=== PATIENT | female | born 1955 | race Caucasian/White ===

== ENCOUNTER 2019-02-25 07:00 | Inpatient (IN) | payer MEDICARE, MEDICAID ==
[2019-02-21 12:13] VITALS: BMI 25.6
[2019-02-25] MEDS ORDERED: Sodium Chloride 0.9% 10 ML ONE (07:36)
[2019-02-25 08:10] LABS: #Basophils 0.1 thou/uL (0.0-0.2); #Eosinphils 0.3 thou/uL (0.0-0.7); #Monocytes 0.8 thou/uL (0.11-0.59); #Neutrophils 2.8 thou/uL (1.40-6.50); %Eosinophils 4.2 % (0.0-10.0); %Lymphocytes 43.5 % (21.0-51.0); %Neutrophils 40.3 % (42.0-75.0); Hemoglobin 14.5 g/dL (12.0-16.0); Mean Corpuscular HGB CONC 32.7 g/dL (32.0-36.0); Mean Corpuscular Hemoglobin 32.7 pg (27.0-31.0); Mean Platelet Volume 9.9 fL (7.4-10.4); Platelet Count 332 thou/uL (130-400); Red Blood Cell (RBC) Count 4.42 mill/uL (4.20-5.40); White Blood Cell (WBC) Count 6.8 thou/uL (4.8-10.8)
[2019-02-25 08:27] LABS: Anion Gap 7 mmol/L (10-20); BUN (Urea Nitrogen) 9 mg/dL (9.8-20.1); Calc. Creatinine Clearance 93 mL/min (70-130); Calcium 9.4 mg/dL (7.8-10.44); Carbon Dioxide 28 mmol/L (23-31); Chloride 108 mmol/L (98-107); Estimated GFR-MDRD Greater than 90; Glucose 105 mg/dL (80-115); Potassium 3.6 mmol/L (3.5-5.1); Sodium 139 mmol/L (136-145)
[2019-02-25] MEDS ORDERED: Fentanyl 100 MCG/2 ML VIAL ONE ×3 (09:19→11:07)
[2019-02-25] MEDS ORDERED: Promethazine HCl 25 MG/ML VIAL SLOW IVP PRN (10:40)
[2019-02-25] MEDS ORDERED: Promethazine HCl 25 MG/ML VIAL IM PRN ×2 (10:40→11:03)
[2019-02-25] MEDS ORDERED: Mag-Al 1200 mg/1200 mg/30 ML UDCUP PO PRN (11:03)
[2019-02-25] MEDS ORDERED: Ondansetron PF 4 MG/2 ML Vial IM PRN (11:03)
[2019-02-25] MEDS ORDERED: HYDROcodone/Acetaminophen 10/325 mg Tablet PO PRN (11:03)
[2019-02-25] MEDS ORDERED: Milk Of Magnesia 30 ML UDCUP PO PRN (11:03)
[2019-02-25] MEDS ORDERED: Promethazine HCl 12.5 MG SUPP PR PRN (11:03)
[2019-02-25] MEDS ORDERED: Promethazine 25 MG TAB PO PRN (11:03)
[2019-02-25] MEDS ORDERED: tiZANidine HCl 4 MG TAB PO PRN (11:03)
[2019-02-25] MEDS ORDERED: diphenhydrAMINE 50 MG/ML VIAL IVP PRN (11:09)
[2019-02-25] MEDS ORDERED: diphenhydrAMINE 25 MG CAP PO PRN (11:09)
[2019-02-25] MEDS ORDERED: Morphine 2 MG/ML SYRINGE SLOW IVP PRN (11:10)
[2019-02-25] MEDS ORDERED: PHENYLEPHRINE-NS 100 MCG/ML 10 ML SYRINGE ONE (11:16)
[2019-02-25] MEDS ORDERED: PROPOFOL 200 MG/20 ML VIAL ONE (11:16)
[2019-02-25] MEDS ORDERED: Rocuronium Bromide 10 MG/ML (10ML VIAL) ONE (11:16)
[2019-02-25] MEDS ORDERED: Lidocaine 1% PF 5 ML VIAL ONE (11:16)
[2019-02-25] MEDS ORDERED: ePHEDrine 50 MG/ML VIAL ONE (11:16)
[2019-02-25] MEDS ORDERED: Glycopyrrolate 0.2 MG/ML 5 ML SYRINGE ONE (11:16)
[2019-02-25] MEDS ORDERED: HYDROmorphone 2 MG/ML VIAL ONE (11:19)
[2019-02-25] MEDS ORDERED: HYDROmorphone 2 MG/ML VIAL SLOW IVP PRN (11:35)
[2019-02-25] MEDS ORDERED: Promethazine HCl 25 MG/ML VIAL ONE (11:45)
[2019-02-25] MEDS: Sodium Chloride 0.9% 1,000 ML IV SCH ×2 (12:40→23:52)
[2019-02-25] MEDS: HYDROcodone/Acetaminophen 10/325 mg Tablet PO PRN ×3 (14:21→23:51)
[2019-02-25] MEDS: Morphine 4 MG/ML VIAL SLOW IVP PRN ×4 (14:58→20:16)
[2019-02-25] MEDS: CEFAZOLIN 2 GM in Premix Bag 1 BAG IVPB SCH (16:26)
--- NOTE | 2019-02-25 17:00 | OP ---
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 PROCEDURES PERFORMED: L4-L5 laminectomy, posterolateral arthrodesis L4-5, demineralized bone matrix, local morselized autograft, pedicle screw instrumentation L4-5. DESCRIPTION OF PROCEDURE: The patient was brought to the operating room and intubated. She was rolled in a prone position on gel-filled chest rolls. An incision was made exposing L4-L5 and the level was confirmed by x-ray. We performed complete L5 and inferior L4 laminectomies completely decompressing the neural elements. Next, pedicle screws were placed at right L4 and right L5 using lateral fluoroscopic guidance and the position was confirmed by x-ray. The rakesh was secured between the screws, connected by nuts, which were final tightened. Posterolateral surfaces were then prepared for the purpose of arthrodesis and a combination of demineralized bone matrix, local morselized autograft was laid over the lamina and posterolateral surfaces for arthrodesis. The wound was extensively irrigated. Vancomycin powder was applied, and hemostasis was secured. The wound was closed in anatomic layers. Job ID: [id number]
[2019-02-25] MEDS ORDERED: Dexamethasone 4 mg/ml Vial SLOW IVP SCH (21:45)
[2019-02-26] MEDS: CEFAZOLIN 2 GM in Premix Bag 1 BAG IVPB SCH
[2019-02-26] MEDS: Morphine 4 MG/ML VIAL SLOW IVP PRN ×2 (01:23→10:41)
[2019-02-26] MEDS: HYDROcodone/Acetaminophen 10/325 mg Tablet PO PRN ×5 (03:57→23:05)
--- NOTE | 2019-02-26 06:42 | PRG ---
DATE OF SERVICE: 02/26/2019 SUBJECTIVE: The patient is a 63-year-old female, status post L4-L5 decompression and fusion, postoperative day #1. Following the surgery, she was transitioned to the Med/Surg floor. She did have some issues with pain control overnight, complaining mostly of radicular right leg pain into the right groin and right anterior proximal leg. The on-call PA was notified overnight and the patient was treated with 8 mg of IV Decadron. She reports this has significantly improved her symptoms. She is still complaining of some soreness in the back as well. She reports she has gotten up several times with her walker and been able to walk to the bathroom without any difficulty. She is voiding appropriately. The patient is awake, alert, and in no acute distress this morning. She has some breakaway weakness in the lower extremities, but this appears to be mostly related to pain. She has no reflex asymmetry. Incision is dry and intact. PLAN: We will continue to work on pain control mobilization today. Anticipate the patient could be discharged home in 1 to 2 days. Job ID: [id number]
[2019-02-26] MEDS ORDERED: Loperamide HCl 2 MG CAP PO PRN (12:40)
[2019-02-26] MEDS ORDERED: Fluticasone Propionate Nasal Spray 16 gm Bottle NASAL PRN (12:40)
[2019-02-26] MEDS ORDERED: Ergocalciferol 1.25 MG(50,000 UNITS) CAP PO SCH (12:45)
[2019-02-26] MEDS: Pregabalin 50 MG CAP PO SCH ×2 (15:00→20:21)
[2019-02-26] MEDS: Sodium Chloride 0.9% 1,000 ML IV SCH (15:02)
[2019-02-26] MEDS ORDERED: Bupropion 150 MG XL TAB PO SCH (21:00)
--- NOTE | 2019-02-26 22:51 | EKG ---
Test Reason : PREOP Blood Pressure : / mmHG Vent. Rate : 057 BPM Atrial Rate : 057 BPM P-R Int : 136 ms QRS Dur : 096 ms QT Int : 458 ms P-R-T Axes : 059 062 056 degrees QTc Int : 445 ms Sinus bradycardia Otherwise normal ECG No previous ECGs available Confirmed by KAYKAY KUMAR ([id number]) on 02/26/2019 10:51:12 PM Referred By: ISH Confirmed By:KAYKAY KUMAR
[2019-02-27] MEDS: Morphine 4 MG/ML VIAL SLOW IVP PRN (01:17)
[2019-02-27] MEDS: Sodium Chloride 0.9% 1,000 ML IV SCH (03:16)
[2019-02-27] MEDS: HYDROcodone/Acetaminophen 10/325 mg Tablet PO PRN ×3 (05:18→13:19)
[2019-02-27] MEDS: Pregabalin 50 MG CAP PO SCH (09:30)
--- NOTE | 2019-02-27 10:58 | DIS ---
DATE OF ADMISSION: 02/25/2019 DATE OF DISCHARGE: 02/27/2019 HOSPITAL COURSE: The patient is a 63-year-old female, status post L4-L5 decompression and fusion. Following the surgery, she was transitioned to the Med/Surg floor. She initially had some increased pain issues, but this improved following administration of IV Decadron as well as with time. She mobilized during her admission and worked with Physical Therapy. She is ambulating easily in her room and in department with her walker. She has been tolerating a regular diet and voiding appropriately. She does have some mild incisional drainage, but this seems to be tapering with time. She is awake and alert this morning, no acute distress. Free active range of motion of all extremities. No focal motor weakness or reflex asymmetry. Incision is intact and dry. We will plan to dismiss to home. I have discussed home care and precautions. We will arrange home health physical therapy and I have asked Case Management to assist with this. Her pain management doctor is managing her pain medicines and I have prescribed her Keflex for home. Job ID: [id number]
[2019-02-27 12:06] VITALS: BP 117/74; TEMP 98.3
== END 2019-02-27 13:45 | disposition home or self-care (01) | DRG 460 ==
LOC: SURG A 07:00
PROVIDERS: ADMIT Neurological Surgery; ATTEND Neurological Surgery
PROC: 0SG0071 Fusion of Lumbar Vertebral Joint with Autologous Tissue Substitute, Posterior Approach, Posterior Column, Open Approach (ICD-10-PCS; principal; 2019-02-25)
DX: M48.062 Spinal stenosis, lumbar region with neurogenic claudication (principal); Z88.8 Allergy status to other drugs, medicaments and biological substances; Z88.6 Allergy status to analgesic agent; Z90.49 Acquired absence of other specified parts of digestive tract; Z90.710 Acquired absence of both cervix and uterus
CPT/HCPCS: 76000; 80048; 85025; 93005; 93010; C1713; C1768; J0690; J1100; J1170; J2001; J2270; J2550; J2704; J3010; J3370; J3490

== ENCOUNTER 2019-03-13 15:52 | Outpatient (CLI) | payer MEDICARE, MEDICAID ==
--- NOTE | 2019-03-13 16:13 | RAD ---
Lumbar spine 2 views HISTORY: Back surgery. Follow-up. FINDINGS: Right pedicle screws and vertical rods at the L4-5 level. No. Hardware lucency. Disc space narrowing and 7 mm spondylolisthesis at this level. Disc space narrowing and minimal degenerative retrolisthesis at the L2-3 level. Leftward convex curva ture on the frontal view. Bilateral laminectomy defects of the lower lumbar spine. Vertebral body heights are maintained. Osteophytosis of the lower facets. IMPRESSION: Postoperative and degenerative changes of the lower lumbar spine as detailed above. No ac [place] osseous abnormalities are demonstrated.
== END 2019-03-13 15:53 | disposition home or self-care (01) ==
LOC: TBSIIMAG 15:52
PROVIDERS: ATTEND Neurological Surgery
DX: M48.062 Spinal stenosis, lumbar region with neurogenic claudication (principal); M47.816 Spondylosis without myelopathy or radiculopathy, lumbar region; Z98.890 Other specified postprocedural states
CPT/HCPCS: 72100